=== PATIENT | female | born 1975 | race Two or more races ===

== ENCOUNTER 2019-01-02 16:44 | Outpatient (CLI) | payer OTHER | END 2019-01-02 16:49 | disposition home or self-care (01) | LOC: LAB 16:44 | DX: H44.19 Other endophthalmitis (principal) ==

== ENCOUNTER 2019-01-03 13:38 | Outpatient (CLI) | payer OTHER | END 2019-01-03 13:46 | disposition home or self-care (01) | LOC: LAB 13:38 | DX: H44.19 Other endophthalmitis (principal) ==